=== PATIENT | male | born 1960 | race Caucasian/White ===

== ENCOUNTER 2019-03-21 19:25 | Inpatient (IN) | payer BC ==
[~2019-03-21] VITALS: Ht 180.3 cm; Wt 86.6 kg
[2019-03-21 19:49] VITALS: BP 180/95
[2019-03-21 20:04] LABS: INFLUENZA A ANTIGEN Positive (Negative); INFLUENZA B ANTIGEN Negative (Negative)
[2019-03-21 21:03] LABS: ABSOLUTE LYMPHOCYTES 0.7 thou/uL (0.8-5.3); ABSOLUTE MONOCYTES 0.6 thou/uL (0.0-1.2); ABSOLUTE NEUTROPHILS 2.9 thou/uL (1.6-8.1); BASOPHILS 0.6 %; HEMATOCRIT 43.2 % (42.0-52.0); HEMOGLOBIN 15.6 gm/dL (14.0-18.0); LYMPHOCYTES 16.5 %; MCH 33.2 pg (26.0-34.0); MCHC 36.1 g/dL (28.0-37.0); MCV 91.9 fL (80.0-100.0); MONOCYTES 13.7 %; MPV 8.3 fl. (7.2-11.1); NUCLEATED RBCS 0 /100WBC; PLATELET COUNT* 133 thou/uL (150-400); POLYS 69.2 %; RDW-CV 11.9 % (10.5-14.5); WBC 4.2 thou/uL (4.0-11.0)
[2019-03-21 21:12] LABS: CALCIUM 7.2 mg/dL (8.5-10.1); CREATININE 1.3 mg/dL (0.6-1.3); POTASSIUM 3.6 mmol/L (3.5-5.1)
[2019-03-21 21:19] LABS: URINE BLOOD 1+ (Negative); URINE CLARITY CLEAR; URINE COLOR YELLOW; URINE GLUCOSE-RANDOM NEGATIVE (Negative); URINE LEUKOCYTES-REFLEX NEGATIVE (Negative); URINE NITRITE-REFLEX NEGATIVE (Negative); URINE PROTEIN TRACE (Negative)
[2019-03-21 21:23] LABS: ALBUMIN 3.1 g/dL (3.4-5.0); MAGNESIUM 1.8 mg/dL (1.8-2.4); TOTAL BILIRUBIN 1.6 mg/dL (<0.1-1.0); TOTAL PROTEIN 6.9 g/dL (6.4-8.2)
[2019-03-21 21:24] LABS: ICTOTEST (BILI CONFIRMATORY) Positive (Negative); URINE BILIRUBIN 1+ (Negative); URINE KETONES 3+ (Negative)
[2019-03-21 21:33] LABS: BACTERIA-REFLEX >30 Many /HPF (None Seen); CELLULAR CASTS 0-3 Few /LPF (None Seen); COARSE GRANULAR CASTS 0-3 Few /LPF (None Seen); MUCUS 4-6 Moderate strn/LPF (None Seen); SQUAMOUS 0-3 Few /LPF (0-3); URINE WBC-REFLEX 6-15 Few /HPF (0-5); WBC CLUMPS Few (None Seen)
[2019-03-21 21:35] LABS: CRYSTALS None Seen /LPF (None Seen)
[2019-03-21 21:40] LABS: ANISOCYTOSIS Occasional
[2019-03-21 21:41] LABS: POIKILOCYTOSIS Occasional
[2019-03-21 23:34] VITALS: BP 116/70
[2019-03-21 23:57] VITALS: BP 111/71
--- NOTE | 2019-03-22 01:46 | NUR ---
Pt reports he does not have a PCP, rarely sees a doctor because "I am never sick." C/O cough; Robitussin equivalent ordered per Dr. Aguiar and given. VSS, on 2L O2 per [place]. States he has been ill for 4 days. Denies pain. Fall precautions in place. Will continue to monitor.
[2019-03-22 04:00] VITALS: BP 107/73
--- NOTE | 2019-03-22 07:04 | NUR ---
Pt reports no relief from coughing. Additional dose of cough syrup given. Will continue to monitor.
[2019-03-22 08:08] VITALS: BP 122/73
--- NOTE | 2019-03-22 09:53 | NUR ---
ASSUMED CARE OF PT THIS AM AROUND 714- GARMENT INSPECTOR IN PLACE ORDERED, TRACING SR- UPON ASSESSMENT PT NOTED TO BE RESTING IN BED- PT A&O X4 CONTINENT VS INCONTINENT OF BOWEL AND BLADDER, OLIGUIA NOTED WITH DIALYSIS- SBA WITH TRANSFERS- COURSE LUNG SOUNDS NOTED WITH NON-PRODUCTIVE COUGH- VSS, O2 SAT 92% ON 2L VIA NC- ABD SOFT/ROUND/NON-TENDER, BS X4 QUADS- LAST BM REPORTED X3 DAYS AGO, BUT PT REPORTS TO NOT BE EATING WELL/MUCH- IV NOTED TO RIGHT AC INTACT AND SL- PT REPORTS DISCOMFORT WITH COUGH- CALL LIGHT AND PERSONAL BELONGINGS WITH IN REACH- HOURLY ROUNDS IN PLACE R/T SAFETY/NEEDS- ALL NEEDS MET AT THIS TIME-WCTM
[2019-03-22 12:00] VITALS: BP 125/77
--- NOTE | 2019-03-22 13:33 | NUR ---
MET WITH PT TO DISCUSS HOME SITUATION/DC PLANNING. 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 PT IS INDEPENDENT AND ACTIVE, USES NO EQUIPMENT. DOENS'T HAVE A PCP AND DECLINED ASSIST OR INFO TO FIND ONE. PT PLANS TO RETURN HOME AT [place]. WILL FOLLOW
--- NOTE | 2019-03-22 13:41 | EKG ---
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[place] : 1960 Requested By: Geovanna Spring Order Number: [id number] Jonathan MD: Lewis Jain Measurements Intervals [place] Rate: 103 P: 21 [place]: 144 QRS: 21 QRSD: 87 T: 61 QT: 330 QTc: 432 Interpretive Statements Sinus tachycardia Probable left atrial enlargement Baseline wander in lead(s) V5 No previous ECG available for comparison Electronically Signed On 03-22-2019 13:40:35 [employer] NET DEVELOPER by Lewis Jain [email or web address] <ELECTRONICALLY SIGNED> By: Lewis Jain MD, [facility] 03/22/19 1340 54 54 Lewis Jain MD, FAC /EPI
--- NOTE | 2019-03-22 13:50 | EKG ---
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
[2019-03-22 15:00] LABS: ABSOLUTE LYMPHOCYTES 0.6 thou/uL (0.8-5.3); ABSOLUTE MONOCYTES 0.6 thou/uL (0.0-1.2); ABSOLUTE NEUTROPHILS 2.3 thou/uL (1.6-8.1); BASOPHILS 0.5 %; HEMATOCRIT 40.3 % (42.0-52.0); HEMOGLOBIN 14.3 gm/dL (14.0-18.0); LYMPHOCYTES 16.9 %; MCH 32.5 pg (26.0-34.0); MCHC 35.6 g/dL (28.0-37.0); MCV 91.4 fL (80.0-100.0); MONOCYTES 16.1 %; MPV 8.4 fl. (7.2-11.1); NUCLEATED RBCS 0 /100WBC; PLATELET COUNT* 131 thou/uL (150-400); POLYS 66.5 %; RBC 4.41 mil/uL (4.50-6.00); RDW-CV 12.2 % (10.5-14.5); WBC 3.4 thou/uL (4.0-11.0)
[2019-03-22 15:10] LABS: ALBUMIN 2.6 g/dL (3.4-5.0); CALCIUM 7.2 mg/dL (8.5-10.1); CREATININE 1.2 mg/dL (0.6-1.3); MAGNESIUM 1.8 mg/dL (1.8-2.4); POTASSIUM 3.6 mmol/L (3.5-5.1); TOTAL BILIRUBIN 2.1 mg/dL (<0.1-1.0); TOTAL PROTEIN 6.1 g/dL (6.4-8.2)
[2019-03-22 16:00] VITALS: BP 130/72
[2019-03-22 20:35] VITALS: BP 108/64
--- NOTE | 2019-03-23 05:24 | NUR ---
PT IS ABLE TO COMMUNICATE HIS NEEDS TO STAFF EFFECTIVELY. HE HAS DENIED THE NEED FOR PAIN MEDICATION UP TO THIS TIME. DROPLET ISOLATION, FOR POSITIVE FLU "A" SWAB, MAINTAINED.
--- NOTE | 2019-03-23 08:12 | NUR ---
DAUGHTER CALLED TO CHECK ON PATIENT - UPDATED ON CONDITION.
[2019-03-23 08:45] VITALS: BP 117/65
[2019-03-23 12:34] VITALS: BP 104/69
[2019-03-23 15:43] VITALS: BP 98/64
[2019-03-23 20:00] VITALS: BP 112/65
[2019-03-24 00:05] VITALS: BP 122/76
--- NOTE | 2019-03-24 04:50 | NUR ---
ASSUMED PATIENT CARE AT 1900. ASSESSMENT COMPLETED CHARTED. PATIENT IS NSR ON THE MONITOR. HOURLY ROUNDING IN PLACE FOR PATIENT SAFETY. CLWR.
[2019-03-24 05:10] LABS: HEMATOCRIT 37.6 % (42.0-52.0); HEMOGLOBIN 13.5 gm/dL (14.0-18.0); MCH 32.8 pg (26.0-34.0); MCHC 35.8 g/dL (28.0-37.0); MCV 91.6 fL (80.0-100.0); MPV 8.6 fl. (7.2-11.1); NUCLEATED RBCS 0 /100WBC; PLATELET COUNT* 141 thou/uL (150-400); RBC 4.11 mil/uL (4.50-6.00); RDW-CV 12.3 % (10.5-14.5); WBC 4.3 thou/uL (4.0-11.0)
[2019-03-24 05:18] VITALS: BP 122/76
[2019-03-24 05:29] LABS: ALBUMIN 2.3 g/dL (3.4-5.0); CALCIUM 7.2 mg/dL (8.5-10.1); MAGNESIUM 2.1 mg/dL (1.8-2.4); POTASSIUM 3.3 mmol/L (3.5-5.1); TOTAL BILIRUBIN 1.2 mg/dL (<0.1-1.0); TOTAL PROTEIN 5.9 g/dL (6.4-8.2)
[2019-03-24 08:00] VITALS: BP 108/62
[2019-03-24 11:20] LABS: ABSOLUTE LYMPHOCYTES 1.3 thou/uL (0.8-5.3); ABSOLUTE MONOCYTES 0.5 thou/uL (0.0-1.2); ABSOLUTE NEUTROPHILS 2.5 thou/uL (1.6-8.1); PLATELET ESTIMATE DECREASED
[2019-03-24 11:21] LABS: ANISOCYTOSIS 1+; POIKILOCYTOSIS 1+
[2019-03-24 12:16] VITALS: BP 119/72
--- NOTE | 2019-03-24 17:54 | NUR ---
ASSUMED PT CARE AT 0700. NURSING ASSESSMENT COMPLETED AT START OF SHIFT. PT VOICED NO CONCERNS. IV FLUIDS INFUSING. SR ON SANITATION WORKER CLEANING EQUIPMENT AT START OF SHIFT. STATUS CHANGED TO MED SURG. HOURLY ROUNDING COMPLETED. PT IN ISOLATION FOR [place]NE PRECAUTIONS. TITRATED O2 TO 1.5 L THIS SHIFT. NEGATIVE SEPSIS SCREENING. CALL LIGHT WITHIN REACH.
[2019-03-24 23:57] VITALS: BP 126/75
--- NOTE | 2019-03-25 04:31 | NUR ---
ASSUMED PATIENT CARE AT 1900. ASSESSMENT COMPLETED CHARTED. PATIENT IS MED-SURG. HOURLY ROUNDING IN PLACE FOR PATIENT SAFETY. CLWR.
[2019-03-25 12:51] VITALS: BP 107/73
--- NOTE | 2019-03-25 19:05 | NUR ---
ASSUMED PT CARE REPORT RECEIVED FROM NURSE PT IS AOX4 ON 2 LNC. REFUSED TO GO HOME. UP AD AMANDA . RECEIVING IV FLUID. DROPLET PRECAUTION IN PLACE
[2019-03-25 20:00] VITALS: BP 120/72
[2019-03-25 23:53] VITALS: BP 119/66
--- NOTE | 2019-03-26 05:23 | NUR ---
ASSUMED PATIENT CARE AT 1900. ASSESSMENT COMPLETED CHARTED. PATIENT IS MED-SURG. HOURLY ROUNDING IN PLACE FOR PATIENT SAFETY. CLWR.
[2019-03-26 08:00] VITALS: BP 143/87
[2019-03-26] MEDS ORDERED: KEFLEX500 M1 PO (12:42)
[2019-03-26] MEDS ORDERED: TAMIFLU75 MG PO (12:42)
--- NOTE | 2019-03-26 12:59 | NUR ---
CONTINUE TO FOLLOW, MET WITH PT. HE WANTS TO TALK WITH , NOT SURE AGREEABLE TO O2 IF QUALIFIES. DISCUSSED WITH DR WILSON. PT IS AGREEABLE. WILL CHECK SATS. AWAIT THOSE AND CAN ARRANGE O2
[2019-03-26 15:59] VITALS: BP 132/81
[2019-03-26 16:10] VITALS: BP 132/81
--- NOTE | 2019-03-26 19:48 | NUR ---
DISCHARGE EDUCATION PROVIDED. EDUCATION PROVIDED REGARDING O2 NEEDS. PT LEFT THE UNIT AT 1800 WITH HIS BROTHER.
== END 2019-03-26 18:00 | disposition home or self-care (01) | DRG 194 ==
LOC: M.ERS 19:25 → M.TBA-ER 22:31 → M.2W 22:31
PROVIDERS: Emergency Medicine; Internal Medicine; Physician Assistant; ADMIT Internal Medicine
DX: J18.9 Pneumonia, unspecified organism (principal); E87.1 Hypo-osmolality and hyponatremia; N39.0 Urinary tract infection, site not specified; J10.00 Influenza due to other identified influenza virus with unspecified type of pneumonia; F17.220 Nicotine dependence, chewing tobacco, uncomplicated; D69.6 Thrombocytopenia, unspecified; E87.6 Hypokalemia; Z23 Encounter for immunization; Z79.899 Other long term (current) drug therapy